=== PATIENT | male | born 1960 | race Caucasian/White ===

== ENCOUNTER 2017-09-20 13:35 | Outpatient (CLI) | payer MEDICARE, MEDICAID ==
[~2017-09-20 13:35] MED LIST: ASPI-611 PO; CARV25TA3 PO; EZET10TA14 PO; HYDR-3972 PO; ROSU40TA PO; SACU1TAB7 PO
== END 2017-09-20 23:59 | disposition home or self-care (01) ==
LOC: LAB 13:35
PROVIDERS: ATTEND Anesthesiology
DX: Z01.818 Encounter for other preprocedural examination (principal); R94.31 Abnormal electrocardiogram [ECG] [EKG]; G89.4 Chronic pain syndrome
CPT/HCPCS: 93005

== ENCOUNTER 2018-03-21 17:52 | Emergency (ER) | payer MEDICARE, MEDICAID ==
[~2018-03-21] VITALS: Ht 175.3 cm; Wt 73.7 kg
[2018-03-21 18:41] LABS: BASOPHILS % (AUTO) 0.4 % (0-1); EOSINOPHILS # (AUTO) 0.1 X10'3 (0-0.9); EOSINOPHILS % (AUTO) 1.6 % (0-6); HEMATOCRIT 50.3 % (42.0-52.0); HEMOGLOBIN 17.3 g/dl (14.0-17.9); LYMPHOCYTES # (AUTO) 3.2 X10'3 (1.1-4.8); LYMPHOCYTES % (AUTO) 35.4 % (21-51); MEAN CORPUSCULAR HEMOGLOBIN 32.3 PG (27.0-31.0); MEAN CORPUSCULAR HGB CONC 34.4 % (33.0-36.5); MEAN CORPUSCULAR VOLUME 93.9 FL (78-98); MEAN PLATELET VOLUME 9.1 FL (7.4-10.4); MONOCYTES # (AUTO) 0.8 X10'3 (0-0.9); MONOCYTES % (AUTO) 8.7 % (2-12); NEUTROPHILS % (AUTO) 53.9 % (42-75); PLATELET COUNT 243 X10'3 (140-440); RED BLOOD COUNT 5.36 X10'6 (4.70-6.10); WHITE BLOOD COUNT 9.1 X10'3 (4.5-11.0)
[2018-03-21 18:43] LABS: ALANINE AMINOTRANSFERASE 35 U/L (12-78); ALBUMIN 4.7 G/DL (3.4-5.0); ALBUMIN/GLOBULIN RATIO 1.1 (1.1-1.5); ALKALINE PHOSPHATASE 78 IU/L (46-116); ANION GAP 10 (8-16); ASPARTATE AMINO TRANSFERASE 25 U/L (10-37); BILIRUBIN,TOTAL 0.7 MG/DL (0.1-1.0); BLOOD UREA NITROGEN 15 MG/DL (7-18); BUN/CREATININE RATIO 16.1 (5.4-32.0); CALCIUM 9.1 MG/DL (8.5-10.1); CHLORIDE 102 MMOL/L (99-107); CREATININE 0.93 MG/DL (0.60-1.10); GLUCOSE 81 MG/DL (70-104); POTASSIUM 3.6 MMOL/L (3.5-5.1); SODIUM 141 MMOL/L (135-145); TOTAL CARBON DIOXIDE 29.5 MMOL/L (24-32); eGFR 84 ML/MIN
[2018-03-21 19:19] LABS: PARTIAL THROMBOPLASTIN TIME 28 SECONDS (22-32); PROTHROMBIN TIME 10.1 SECONDS (9.0-12.0)
[2018-03-21 20:33] VITALS: BP 105/74
== END 2018-03-21 20:49 | disposition home or self-care (01) ==
LOC: ER 17:52
DX: R19.7 Diarrhea, unspecified (principal); R06.02 Shortness of breath; I25.10 Atherosclerotic heart disease of native coronary artery without angina pectoris; E78.00 Pure hypercholesterolemia, unspecified; G89.29 Other chronic pain; F12.90 Cannabis use, unspecified, uncomplicated; Z86.73 Personal history of transient ischemic attack (TIA), and cerebral infarction without residual deficits; Z56.0 Unemployment, unspecified; Z87.891 Personal history of nicotine dependence; Z95.1 Presence of aortocoronary bypass graft; Z95.0 Presence of cardiac pacemaker; Z90.89 Acquired absence of other organs; Z79.82 Long term (current) use of aspirin; Z79.899 Other long term (current) drug therapy
CPT/HCPCS: 36415; 71045; 80053; 83880; 84484; 85025; 85610; 85730; 93005; 99285

== ENCOUNTER 2018-06-17 08:33 | Emergency (ER) | payer MEDICARE, MEDICAID ==
[~2018-06-17] VITALS: Ht 175.3 cm; Wt 72.7 kg
[2018-06-17] MEDS ORDERED: aspirin 81mg tab.chew PO ONE (09:00)
[2018-06-17] MEDS ORDERED: ipratropium/albuterol 3ml nebule NEB ONE (09:20)
[2018-06-17 09:21] LABS: BASOPHILS % (AUTO) 0.2 % (0-1); EOSINOPHILS # (AUTO) 0.3 X10'3 (0-0.9); EOSINOPHILS % (AUTO) 2.4 % (0-6); HEMOGLOBIN 14.5 g/dl (14.0-17.9); LYMPHOCYTES # (AUTO) 1.3 X10'3 (1.1-4.8); LYMPHOCYTES % (AUTO) 12.6 % (21-51); MEAN CORPUSCULAR HEMOGLOBIN 31.5 PG (27.0-31.0); MEAN CORPUSCULAR HGB CONC 33.6 % (33.0-36.5); MEAN CORPUSCULAR VOLUME 93.6 FL (78-98); MEAN PLATELET VOLUME 8.1 FL (7.4-10.4); MONOCYTES # (AUTO) 0.6 X10'3 (0-0.9); MONOCYTES % (AUTO) 5.4 % (2-12); NEUTROPHILS # (AUTO) 8.3 X10'3 (1.8-7.7); NEUTROPHILS % (AUTO) 79.4 % (42-75); PLATELET COUNT 204 X10'3 (140-440); RED CELL DISTRIBUTION WIDTH 13.5 % (11.5-14.5); WHITE BLOOD COUNT 10.4 X10'3 (4.5-11.0)
[2018-06-17 09:42] LABS: ALANINE AMINOTRANSFERASE 28 U/L (12-78); ALBUMIN 3.5 G/DL (3.4-5.0); ALKALINE PHOSPHATASE 63 IU/L (46-116); ANION GAP 12 (8-16); ASPARTATE AMINO TRANSFERASE 18 U/L (10-37); BILIRUBIN,TOTAL 0.7 MG/DL (0.1-1.0); BLOOD UREA NITROGEN 12 MG/DL (7-18); BUN/CREATININE RATIO 11.4 (5.4-32.0); CALCIUM 8.6 MG/DL (8.5-10.1); CHLORIDE 103 MMOL/L (99-107); CREATININE 1.05 MG/DL (0.60-1.10); GLUCOSE 147 MG/DL (70-104); SODIUM 139 MMOL/L (135-145); TOTAL CARBON DIOXIDE 23.7 MMOL/L (24-32); TOTAL PROTEIN 7.1 G/DL (6.4-8.2); eGFR 73 ML/MIN
[2018-06-17] MEDS ORDERED: GUAI473S11 PO (10:27)
[2018-06-17] MEDS ORDERED: ALBU8.5H8 IH (10:27)
[2018-06-17] MEDS ORDERED: BENZ-16 PO (10:27)
[2018-06-17] MEDS ORDERED: GUAI120015 PO (10:27)
[2018-06-17 10:47] VITALS: BP 102/46
== END 2018-06-17 10:49 | disposition home or self-care (01) ==
LOC: ER 08:34
DX: R05 Cough (principal); I25.10 Atherosclerotic heart disease of native coronary artery without angina pectoris; E78.00 Pure hypercholesterolemia, unspecified; G89.29 Other chronic pain; F12.90 Cannabis use, unspecified, uncomplicated; Z95.1 Presence of aortocoronary bypass graft; Z95.0 Presence of cardiac pacemaker; Z98.890 Other specified postprocedural states; Z56.0 Unemployment, unspecified; Z79.82 Long term (current) use of aspirin; Z79.899 Other long term (current) drug therapy
CPT/HCPCS: 36415; 71046; 80053; 83735; 83880; 84484; 85025; 93005; 94640; 94760; 99284

== ENCOUNTER 2019-07-16 10:40 | Emergency (ER) | payer MEDICARE, MEDICAID ==
[~2019-07-16] VITALS: Ht 175.3 cm; Wt 70.0 kg
[~2019-07-16 10:40] MED LIST changes: +ALBU8.5H8 IH; -EZET10TA14 PO; +EZET10TA6 PO; +GUAI120015 PO
[2019-07-16] MEDS ORDERED: meclizine 12.5mg tablet PO ONE (11:35)
[2019-07-16 12:25] VITALS: BP 101/65
== END 2019-07-16 12:28 | disposition home or self-care (01) ==
LOC: ER 10:41
DX: H93.13 Tinnitus, bilateral (principal); H69.83 Other specified disorders of Eustachian tube, bilateral; H91.93 Unspecified hearing loss, bilateral; I25.10 Atherosclerotic heart disease of native coronary artery without angina pectoris; E78.00 Pure hypercholesterolemia, unspecified; G89.29 Other chronic pain; F10.20 Alcohol dependence, uncomplicated; F12.90 Cannabis use, unspecified, uncomplicated; Z90.49 Acquired absence of other specified parts of digestive tract; Z56.0 Unemployment, unspecified; Z72.89 Other problems related to lifestyle; Z79.82 Long term (current) use of aspirin; Z79.899 Other long term (current) drug therapy; Z95.1 Presence of aortocoronary bypass graft; Z95.0 Presence of cardiac pacemaker; Y90.9 Presence of alcohol in blood, level not specified
CPT/HCPCS: 70450; 99284; J8597

== ENCOUNTER 2021-05-08 07:01 | Emergency (ER) | payer MEDICARE, MEDICAID ==
[~2021-05-08] VITALS: Ht 175.3 cm; Wt 79.5 kg
[~2021-05-08 07:01] MED LIST changes: +ALBU8.5H17 IH; -ALBU8.5H8 IH
[2021-05-08] MEDS ORDERED: acetaminophen 325mg tablet PO STA (07:23)
[2021-05-08 09:15] LABS: ALANINE AMINOTRANSFERASE 24 U/L (12-78); ALBUMIN 3.6 G/DL (3.4-5.0); ALBUMIN/GLOBULIN RATIO 1.1 (1.1-1.5); ALKALINE PHOSPHATASE 52 IU/L (46-116); ANION GAP 12 (8-16); ASPARTATE AMINO TRANSFERASE 18 U/L (10-37); BILIRUBIN,TOTAL 0.5 MG/DL (0.1-1.0); BLOOD UREA NITROGEN 12 MG/DL (7-18); BUN/CREATININE RATIO 10.9 (5.4-32.0); CALCIUM 8.6 MG/DL (8.5-10.1); CHLORIDE 104 MMOL/L (99-107); GLUCOSE 113 MG/DL (70-104); POTASSIUM 3.8 MMOL/L (3.5-5.1); SODIUM 140 MMOL/L (135-145); TOTAL PROTEIN 6.9 G/DL (6.4-8.2); eGFR 69 ML/MIN
[2021-05-08 09:20] LABS: BASOPHILS % (AUTO) 0.1 % (0-1); EOSINOPHILS % (AUTO) 0.4 % (0-6); HEMATOCRIT 38.7 % (42.0-52.0); HEMOGLOBIN 13.2 g/dl (14.0-17.9); LYMPHOCYTES # (AUTO) 0.7 X10'3 (1.1-4.8); MEAN CORPUSCULAR HEMOGLOBIN 30.8 PG (27.0-31.0); MEAN CORPUSCULAR HGB CONC 34.1 g/dL (33.0-36.5); MEAN CORPUSCULAR VOLUME 90.5 FL (78-98); MEAN PLATELET VOLUME 8.8 FL (7.4-10.4); MONOCYTES # (AUTO) 0.6 X10'3 (0-0.9); MONOCYTES % (AUTO) 4.7 % (2-12); NEUTROPHILS # (AUTO) 10.5 X10'3 (1.8-7.7); NEUTROPHILS % (AUTO) 88.8 % (42-75); PLATELET COUNT 198 X10'3 (140-440); RED BLOOD COUNT 4.28 X10'6 (4.70-6.10); RED CELL DISTRIBUTION WIDTH 13.3 % (11.5-14.5); WHITE BLOOD COUNT 11.8 X10'3 (4.5-11.0)
[2021-05-08] MEDS ORDERED: normal saline 1000ML IV soln IVB ONE (09:30)
--- NOTE | 2021-05-08 09:44 | NUR ---
NOTIFIED MD OF HYPOTENSION. MD ORDERED IV FLUIDS.
[2021-05-08] MEDS ORDERED: BENZ-38 PO (10:33)
[2021-05-08 11:02] VITALS: BP 93/51
--- NOTE | 2021-05-08 11:11 | NUR ---
Pt given and understands d/c instructions. Ambulatory with a steady gait.
== END 2021-05-08 11:12 | disposition home or self-care (01) ==
LOC: ER 07:02
DX: B34.9 Viral infection, unspecified (principal); Z20.822 Contact with and (suspected) exposure to COVID-19; R50.9 Fever, unspecified; R11.2 Nausea with vomiting, unspecified; R06.02 Shortness of breath; R43.8 Other disturbances of smell and taste; I25.10 Atherosclerotic heart disease of native coronary artery without angina pectoris; E78.00 Pure hypercholesterolemia, unspecified; G89.29 Other chronic pain; F17.200 Nicotine dependence, unspecified, uncomplicated; F12.90 Cannabis use, unspecified, uncomplicated; Z86.73 Personal history of transient ischemic attack (TIA), and cerebral infarction without residual deficits; Z95.0 Presence of cardiac pacemaker; Z98.890 Other specified postprocedural states; Z56.0 Unemployment, unspecified; Z79.82 Long term (current) use of aspirin; Z79.899 Other long term (current) drug therapy
CPT/HCPCS: 36415; 71045; 80053; 83605; 83880; 84145; 84484; 85025; 87040; 87502; 87503; 87635; 93005; 99285; C9803; J7030

== ENCOUNTER 2022-05-31 03:02 | Emergency (ER) | payer MEDICARE, MEDICAID ==
[~2022-05-31] VITALS: Ht 175.3 cm; Wt 72.7 kg
[2022-05-31 03:18] VITALS: BP 107/41
[2022-05-31] MEDS ORDERED: ketorolac trometh inj. 60 MG/2 ML VIAL IM ONE (08:55)
[2022-05-31] MEDS ORDERED: DOXY100C77 PO (09:16)
[2022-05-31] MEDS ORDERED: ALBU6.7H14 INH (09:16)
[2022-05-31] MEDS ORDERED: CEPH250T PO (09:16)
[2022-05-31] MEDS ORDERED: NAPR-56 PO (09:16)
[2022-05-31] MEDS ORDERED: PRED20TA PO (09:16)
== END 2022-05-31 09:29 | disposition home or self-care (01) ==
LOC: ER 03:03
DX: J40 Bronchitis, not specified as acute or chronic (principal); R06.2 Wheezing; R07.81 Pleurodynia; R06.02 Shortness of breath; R50.9 Fever, unspecified; I25.10 Atherosclerotic heart disease of native coronary artery without angina pectoris; E78.00 Pure hypercholesterolemia, unspecified; G89.29 Other chronic pain; F12.90 Cannabis use, unspecified, uncomplicated; Z86.73 Personal history of transient ischemic attack (TIA), and cerebral infarction without residual deficits; Z95.0 Presence of cardiac pacemaker; Z98.890 Other specified postprocedural states; Z56.0 Unemployment, unspecified; Z90.89 Acquired absence of other organs; Z79.82 Long term (current) use of aspirin; Z79.899 Other long term (current) drug therapy
CPT/HCPCS: 71046; 96372; 99283; J1885

== ENCOUNTER 2023-02-06 05:02 | Emergency (ER) | payer MEDICARE, MEDICAID ==
[~2023-02-06] VITALS: Ht 175.3 cm; Wt 77.3 kg
[~2023-02-06 05:02] MED LIST changes: +ALBU6.7H14 INH
[2023-02-06 05:47] VITALS: BP 121/69; PULSE 75; RESP 18; TEMP 98.1; O2SAT 98
[2023-02-06] MEDS ORDERED: AZIT-164 PO (07:09)
[2023-02-06] MEDS ORDERED: PRED20TA PO (07:09)
[2023-02-06] MEDS ORDERED: ALBU8HFA PO (07:09)
== END 2023-02-06 07:17 | disposition home or self-care (01) ==
LOC: ER 05:03
DX: U07.1 COVID-19 (principal); E78.00 Pure hypercholesterolemia, unspecified; I11.0 Hypertensive heart disease with heart failure; F12.10 Cannabis abuse, uncomplicated
CPT/HCPCS: 36415; 71045; 87502; 87503; 87811; 99284